=== PATIENT | male | born 1925 | race Caucasian/White ===

== ENCOUNTER 2016-12-06 07:57 | Day surgery (SDC) | payer OTHER, MEDICARE ==
[2016-11-25 10:59] VITALS: BMI 20.7
[2016-12-06] MEDS ORDERED: TROPICAMIDE 1% OPHTH SOLN 15 ML BOTTLE OS SCH (08:00)
[2016-12-06] MEDS ORDERED: CYCLOPENTOLATE HCL 1% OPHTH SOLN 2 ML BOTTLE OS SCH (08:00)
[2016-12-06] MEDS ORDERED: PHENYLEPHRINE 2.5% OPHTH SOLN 15 ML BOTTLE OS SCH (08:00)
[2016-12-06] MEDS ORDERED: GENTAMICIN SULFATE 0.3% OPHTHALMIC (EYE DROPS) 5ML BOTTLE OS SCH (08:00)
[2016-12-06] MEDS ORDERED: FLURBIPROFEN 0.03% OPHTH SOLN 2.5 ML BOTTLE OS SCH (08:00)
[2016-12-06] MEDS: PHENYLEPHRINE 2.5% OPHTH SOLN 15 ML BOTTLE ONE ×5 (08:25→08:45)
[2016-12-06] MEDS: CYCLOPENTOLATE HCL 1% OPHTH SOLN 2 ML BOTTLE ONE ×5 (08:25→08:45)
[2016-12-06] MEDS: GENTAMICIN SULFATE 0.3% OPHTHALMIC (EYE DROPS) 5ML BOTTLE ONE ×5 (08:25→08:45)
[2016-12-06] MEDS: TROPICAMIDE 1% OPHTH SOLN 15 ML BOTTLE ONE ×5 (08:25→08:45)
[2016-12-06] MEDS: FLURBIPROFEN 0.03% OPHTH SOLN 2.5 ML BOTTLE ONE ×5 (08:25→08:45)
[2016-12-06] MEDS ORDERED: MIDAZOLAM HCL 2 MG/2 ML SINGLE DOSE VIAL ONE (08:57)
[2016-12-06] MEDS ORDERED: ACETAMINOPHEN 325 MG TABLET (FP) PO PRN (09:59)
[2016-12-06 11:16] VITALS: TEMP 98.5
[2016-12-06 11:42] VITALS: BP 129/65; PULSE 66
--- NOTE | 2016-12-07 11:26 | OP ---
DATE OF OPERATION: 12/06/2016 PREOPERATIVE DIAGNOSIS: Cataract, left eye. POSTOPERATIVE DIAGNOSIS: Cataract, left eye. PROCEDURE: Cataract extraction via phacoemulsification with insertion of posterior chamber lens implant, left eye. SURGEON: Shan Simeon MD PUMP ERECTOR HELPER: Sujatha Stewart MD ANESTHESIA: Regional with sedation. ESTIMATED BLOOD LOSS: Less than 1 mL. COMPLICATIONS: None. SPECIMENS: None. DESCRIPTION OF PROCEDURE: The patient was identified in the holding area. After all risks, benefits, and alternatives were explained to the patient, informed consent was obtained. The left eye was marked with a marking pen. The patient then entered the operating room on an eye stretcher. After a formal timeout was performed, a 3 mL injection of equal parts 2% lidocaine with epinephrine and 0.5% Marcaine was given in the left eye. Patient was then prepped and draped in the usual sterile fashion. An eyelid speculum was placed beneath the eyelids of the left eye. An infratemporal paracentesis incision was created using a 15-degree blade, followed by viscoelastic injection to the anterior chamber. A 2.4-mm keratome blade was then used to make a superotemporal incision, followed by creation of a 360-degree, continuous curvilinear capsulorrhexis using bent cystotome and Utrata forceps. Hydrodissection was performed using balanced saline solution and a cannula. Phacoemulsification was then introduced to disassemble and remove the nucleus in its entirety. Irrigation/aspiration was then used to remove any remaining cortical material from the eye. The capsular bag was then refilled using viscoelastic. An Guero model SN60WF with a power of 23.5 diopters, serial number [id number] was inspected and found to be defect free and injected into the capsular bag. Irrigation/aspiration was then used to remove any remaining viscoelastic from the eye. Balanced saline solution was then used to reform the anterior chamber. Intracameral injections of Miochol and Miostat were then given to the eye. All wounds were hydrated with balanced saline solution and found to be watertight. The anterior chamber was deep. The eye had an adequate pressure. There was a red reflex present, and the lens was perfectly centered in the capsular bag at the end of the procedure. Topical antibiotics were administered to the left eye. The eyelid speculum was removed from the left eye. The left eye was patched and shielded. The patient tolerated the procedure well and left the operating room in stable condition to follow up in the eye clinic the following morning at 9:00. SHAN SIMEON M.D. [id number]
== END 2016-12-06 11:00 | disposition home or self-care (01) ==
LOC: FASU 07:57
PROVIDERS: ATTEND Ophthalmology
PROC: 08RK3JZ Replacement of Left Lens with Synthetic Substitute, Percutaneous Approach (ICD-10-PCS; principal; 2016-12-06 09:33)
DX: H26.8 Other specified cataract (principal)